=== PATIENT | male | born 1925 | race Caucasian/White ===

== ENCOUNTER → 2016-09-01 | Outpatient (CLI) | payer BC, OTHER ==
[~2016-09-01] MED LIST: AMLO2.5T PO; ASCO1CAP3 PO; ASCO500T16 PO; ASPI81TA28 PO; CALC-20 PO; CRD200 PO; ELQ25 PO; METO25TA3 PO; TPRSR25 PO
== END | disposition home or self-care (01) ==
LOC: C.RDSM 09:45
PROVIDERS: ATTEND Physical Medicine & Rehabilitation Sports Medicine
DX: Z96.653 Presence of artificial knee joint, bilateral (principal)

== ENCOUNTER 2017-03-28 21:56 | Observation (INO) | payer BC, OTHER ==
[~2017-03-28] VITALS: Ht 177.8 cm; Wt 88.9 kg
[~2017-03-28 21:56] MED LIST changes: -AMLO2.5T PO; -ASCO1CAP3 PO; -CRD200 PO; -ELQ25 PO; -TPRSR25 PO
[2017-03-28] MEDS ORDERED: DILTIAZEM BOLUS / DRIP IV STA (22:08)
[2017-03-28] MEDS ORDERED: SODIUM CHLORIDE 0.9% 1000ML 500 ML IV STA (22:08)
[2017-03-28] MEDS ORDERED: DILTIAZEM HCL 5 MG/ML 5 ML VIAL ONE (22:17)
--- NOTE | 2017-03-28 22:23 | EMERGENCY ROOM VISIT NOTE ---
History Report prepared by [place]: Elpidio Crawford Under the Supervision of: Dr. Micheal Booker M.D. First contact with patient: 22:01 Chief Complaint: CARDIAC ASSESSMENT Stated Complaint: CARDIAC ASSESSMENT History of Present Illness The patient is a 89 year old male who presents to the Emergency Room by EMS with complaints of a syncopal episode occurring just prior to arrival. Per nursing staff, the patient was eating dinner at the table when he suddenly became unresponsive. They state that the patient was short of breath as he became more responsive. They note that he was hypotensive upon arrival of EMS. The patient states that he went to the [employer] game earlier today, and was feeling a little short of breath as he left, but otherwise felt normal today--no chest pain. He has a previous history of a-fib. He follows up with cardiology and is scheduled to see them in a few weeks. The patient is on aspirin, but denies taking any other blood thinning medication. He denies any recent alcohol consumption. He was seen in the ED last week for dizziness. He was just recently restarted back on his blood pressure medication. Source of History: patient Onset: Just prior to arrival Quality: other (syncope) Timing: other (episode) Associated Symptoms: + LOC, + SOB Review of Systems See HPI for pertinent positives & negatives. A total of 10 systems reviewed and were otherwise negative. Past Medical & Surgical Medical Problems: (1) A-fib (2) BPH (benign prostatic hyperplasia) (3) GERD (gastroesophageal reflux disease) (4) History of bilateral knee replacement (5) HTN (hypertension) (6) Vertigo Family History No pertinent family history stated. Social History Smoking Status: Former Smoker Drug Use: none Marital Status: Housing Status: lives with significant other Occupation Status: retired Current/Historical Medications Scheduled Amlodipine Besylate (Norvasc), 2.5 MG PO DAILY Ascorbic Acid (Ascorbic Acid), 500 MG PO DAILY Aspirin (Aspirin Ec), 81 MG PO DAILY Calcium Carbonate-Vitamin D (Calcium 600 + D), 1 TAB PO DAILY Metoprolol Succinate (Toprol Xl), 12.5 MG PO DAILY Allergies Coded Allergies: No Known Allergies (Verified , 03/28/17) Physical Exam Vital Signs Date Time Temp Pulse Resp B/P (MAP) Pulse Ox O2 Delivery O2 Flow Rate FiO2 03/28/17 23:24 134 126/68 03/28/17 22:48 128 22 94 Nasal Cannula 2.0 03/28/17 22:38 128 20 104/75 94 Nasal Cannula 2.0 03/28/17 22:15 96 Nasal Cannula 2.0 03/28/17 22:10 128 03/28/17 22:06 95 Room Air 03/28/17 21:59 36.7 133 22 112/96 95 Nasal Cannula 2.0 03/28/17 21:59 98 Room Air Physical Exam GENERAL: Patient is in no acute distress. HEENT: No acute trauma, normocephalic atraumatic, mucous membranes moist, no nasal congestion, no scleral icterus. NECK: No stridor, no adenopathy, no meningismus, trachea is midline. LUNGS: Clear to auscultation bilaterally, no wheeze, no rhonchi, breath sounds equal. HEART: Tachycardic and irregular. No murmurs. ABDOMEN: Soft, nontender, bowel sounds positive, no hernias, no peritonitis. EXTREMITIES: No cyanosis or edema, full range of motion of all the joints without pain or difficulty, no signs for acute trauma. NEUROLOGIC: Seems mildly confused at times. Moving all extremities. Awake and alert. SKIN: No rash, no jaundice, no diaphoresis. Medical Decision & Procedures ER Provider Diagnostic Interpretation: Radiology results as stated below per my review and radiologist interpretation: CHEST ONE VIEW PORTABLE FINDINGS: The heart is mildly enlarged. There is aortic tortuosity/ectasia. There is no failure. There is no focal pulmonary consolidation. There are no pleural effusions.[ Arthritic changes are present within the shoulders. IMPRESSION: Mild cardiomegaly. No acute findings. Electronically signed by: Oliver Unger M.D. 03/28/2017 10:44 PM Laboratory Results 03/28/17 22:25 03/28/17 22:25 Test 03/28/17 22:25 03/28/17 23:46 Red Blood Count 4.60 M/uL (4.7-6.1) Mean Corpuscular Volume 98.5 fL (80-100) Mean Corpuscular Hemoglobin 33.0 pg (25-34) Mean Corpuscular Hemoglobin Concent 33.6 g/dl (32-36) RDW Standard Deviation 49.7 fL (36.4-46.3) RDW Coefficient of Variation 13.8 % (11.5-14.5) Mean Platelet Volume 10.1 fL (7.4-10.4) Prothrombin Time 12.0 SECONDS (9.0-12.0) Prothromb Time International Ratio 1.1 (0.9-1.1) Activated Partial Thromboplast Time 27.1 SECONDS (21.0-31.0) Partial Thromboplastin Ratio 1.0 Anion Gap 13.0 mmol/L (3-11) Est Creatinine Clear Calc Drug Dose 42.0 ml/min Estimated GFR () 55.6 Estimated GFR (Non- 47.9 BUN/Creatinine Ratio 21.0 (10-20) Calcium Level 8.6 mg/dl (8.5-10.1) Total Bilirubin 0.5 mg/dl (0.2-1) Alanine Aminotransferase (ALT/SGPT) 34 U/L (12-78) Alkaline Phosphatase 50 U/L (45-117) Troponin I 0.037 ng/ml (0-0.045) Total Protein 7.5 gm/dl (6.4-8.2) Albumin 3.6 gm/dl (3.4-5.0) Globulin 3.9 gm/dl (2.5-4.0) Albumin/Globulin Ratio 0.9 (0.9-2) Thyroid Stimulating Hormone (TSH) 9.650 uIu/ml (0.300-4.500) Laboratory results reviewed by me. Medications Administered Medications (Trade) Dose Ordered Sig/Lillie Route Start Time Stop Time Status Last Admin Dose Admin Sodium Chloride 500 ml @ 999 mls/hr Q31M STAT IV 03/28/17 22:08 03/28/17 22:38 DC 03/28/17 22:26 999 MLS/HR Diltiazem HCl 125 mg/Dextrose 125 ml @ 0 mls/hr Q0M PRN IV 03/28/17 22:30 03/29/17 04:00 03/28/17 22:29 5 MLS/HR Diltiazem HCl (Cardizem Inj) 25 mg STK-MED ONCE .ROUTE 03/28/17 22:17 03/28/17 22:18 DC 03/28/17 22:28 10 MG Sodium Chloride 500 ml @ 999 mls/hr Q31M STAT IV 03/28/17 23:16 11/18/17 23:46 DC 03/28/17 23:16 999 MLS/HR Metoprolol Tartrate (Lopressor Iv) 2.5 mg NOW STAT IV 03/28/17 23:16 03/28/17 23:17 DC 03/28/17 23:24 2.5 MG ECG Indication: syncope Rate (beats per minute): 136 Rhythm: atrial fibrillation Findings: RBBB, other (Diffuse non-specific ST changes. ) Comparison ECG Date: March 12, 2017 Change: Rate has increased. ED Course 2201: The patient was evaluated in room A10. A complete history and physical exam was performed. 2207: Ordered Cardizem Bolus/Drip IV, Sodium Chloride 500 ml @ 999 mls/hr IV. 2315: Ordered Lopressor 2.5 mg IV, 500 cc of saline as an IV bolus. 5: Spoke with Dr. Galaviz of [facility], he has agreed to see the patient for hospitalization. Medical Decision The patient is a 89 year old male who presents to the ED with complaints of a syncopal episode. Differential diagnoses considered include A-fib, A-flutter, DE, dysrhythmia, infection, anemia, electrolyte imbalance and heart failure. There is no leukocytosis or concerning anemia. No coagulopathy. No significant electrolyte abnormality, kidney failure or hepatitis. His TSH is mildly elevated, the T4 level is pending. Initial EKG showed a rapid A. fib with a right bundle branch block. No acute ischemic change. Cardiac enzyme testing times one is not consistent with acute cardiac injury. Chest film did not show pneumonia, mediastinal widening or pneumothorax. The patient received IV saline, he was given 2/500 mL boluses. He received a bolus of IV diltiazem and then was placed on a diltiazem drip. The drip was titrated to decrease the heart rate. He was given 2.5 mg of IV Lopressor. With the above treatment, the patient's heart rate is improving, he feels well, he is awake and alert. Heart rate is currently about 108. The patient requires a hospital stay. He had a syncopal event at home and is in a rapid A. fib. He is on a diltiazem drip to control his heart rate. I spoke to case management and the on-call hospitalist. The patient is aware of all his findings. Medication Reconcilliation Current Medication List: was personally reviewed by me Blood Pressure Screening Patient's blood pressure: Normal blood pressure Blood pressure disposition: Did not require urgent referral Impression Primary Impression: Rapid atrial fibrillation Additional Impression: Syncope Critical Care I have personally spent greater than 30 minutes of critical care time in the direct management of this patient. This includes bedside care, interpretation of diagnostic studies and testing, discussion with consultants, the patient, and family members, and other required patient management activities. This 30 minutes is in excess of all separately billable procedures. Scribe Attestation The scribe's documentation has been prepared under my direction and personally reviewed by me in its entirety. I confirm that the note above accurately reflects all work, treatment, procedures, and medical decision making performed by me. Departure Information Dispostion Being Evaluated By Hospitalist Referrals No Doctor, Assigned (PCP) Patient Instructions My [facility] Problem Qualifiers
[2017-03-28] MEDS ORDERED: DILTIAZEM HCL INJ 125 MG in DEXTROSE 5% 100ML IV PRN (22:30)
--- NOTE | 2017-03-28 22:45 | DIAGNOSTIC IMAGING REPORT ---
CHEST ONE VIEW PORTABLE CLINICAL HISTORY: Atypical chest pain COMPARISON STUDY: March 12, 2017 FINDINGS: The heart is mildly enlarged. There is aortic tortuosity/ectasia. There is no failure. There is no focal pulmonary consolidation. There are no pleural effusions.[ Arthritic changes are present within the shoulders. IMPRESSION: Mild cardiomegaly. No acute findings. Electronically signed by: Oliver Unger M.D. 03/28/2017 10:44 PM Dictated Date/Time: 03/28/2017 10:43 PM
[2017-03-28 23:07] LABS: HEMATOCRIT 45.3 % (42-52); MEAN CELL VOLUME 98.5 fL (80-100); MEAN CORPUSCULAR HGB CONC 33.6 g/dl (32-36); MEAN PLATELET VOLUME 10.1 fL (7.4-10.4); PLATELET COUNT 187 K/uL (130-400); WHITE BLOOD COUNT 8.27 K/uL (4.8-10.8)
[2017-03-28] MEDS ORDERED: SODIUM CHLORIDE 0.9% 500ML 500 ML IV STA (23:16)
[2017-03-28] MEDS ORDERED: METOPROLOL TARTRATE 1 MG/ML VIAL IV STA (23:16)
[2017-03-28 23:17] LABS: INR 1.1 (0.9-1.1)
[2017-03-28] MEDS ORDERED: AMLO2.5T PO (23:28)
[2017-03-28 23:44] LABS: ALB/GLOB RATIO 0.9 (0.9-2); CALCIUM 8.6 mg/dl (8.5-10.1); CREATININE 1.31 mg/dl (0.60-1.40); THYROID STIMULATING HORMONE 9.65 uIu/ml (0.300-4.500)
[2017-03-28 23:48] LABS: POTASSIUM 3.9 mmol/L (3.5-5.1)
[2017-03-29] MEDS ORDERED: OPTIRAY 320 IV PRN (00:15)
[2017-03-29] MEDS ORDERED: POTASSIUM CHLORIDE 10 MEQ TABCR PO STA (01:37)
[2017-03-29] MEDS ORDERED: NITROGLYCERIN 0.4 MG SL PER TAB CHARGE SL PRN (01:45)
[2017-03-29] MEDS ORDERED: TRAMADOL HCL 50 MG TAB PO PRN (01:45)
[2017-03-29] MEDS ORDERED: PROCHLORPERAZINE INJ 5 MG in SYRINGE 4 ML IV PRN (01:45)
[2017-03-29] MEDS ORDERED: ACETAMINOPHEN 325 MG TAB PO PRN (01:45)
[2017-03-29] MEDS ORDERED: METOPROLOL SUCC 50MG EXT REL TAB PO STA (01:47)
[2017-03-29] MEDS ORDERED: POTASSIUM CHLORIDE 10 MEQ TABCR ONE (01:48)
[2017-03-29] MEDS ORDERED: LACTATED RINGER'S 1000ML 1,000 ML IV ONE (02:30)
[2017-03-29] MEDS ORDERED: IV FLUIDS COMPLETED PRN (02:30)
[2017-03-29 03:00] VITALS: BP_SYST 113; BP_SYST 133; BP_SYST 138; BP_DIAS 63; BP_DIAS 77; BP_DIAS 87; PULSE 74; PULSE 76; PULSE 78; TEMP 36.5; O2SAT 96; Ht 177.8 cm; Wt 88.9 kg
[2017-03-29 03:38] LABS: BASO % 0.3 %; BASO ABS # 0.02 K/uL (0-0.2); COMPLETE YES; EOS % 0.9 %; HEMATOCRIT 42.7 % (42-52); IG% 0.1 %; LYMPH % 28.2 %; LYMPH ABS # 2.15 K/uL (1.2-3.4); MEAN CELL VOLUME 98.4 fL (80-100); MEAN CORPUSCULAR HGB CONC 32.6 g/dl (32-36); MEAN PLATELET VOLUME 9.9 fL (7.4-10.4); MONO % 7.7 %; NEUT % 62.8 %; PLATELET COUNT 179 K/uL (130-400); RED BLOOD COUNT 4.34 M/uL (4.7-6.1); WHITE BLOOD COUNT 7.63 K/uL (4.8-10.8)
[2017-03-29 03:48] LABS: PARTIAL THROMBOPLASTIN RATIO 1.1
[2017-03-29 04:08] VITALS: BP 122/73; PULSE 63; TEMP 36.7; O2SAT 96
[2017-03-29 04:25] LABS: BUN/CREATININE RATIO 21.5 (10-20); CALCIUM 8.3 mg/dl (8.5-10.1); CREATININE 1.15 mg/dl (0.60-1.40); POTASSIUM 4.6 mmol/L (3.5-5.1)
[2017-03-29] MEDS ORDERED: SODIUM CHLORIDE 0.45% 1000ML 1,000 ML IV ONE (04:45)
[2017-03-29 05:31] LABS: URINE APPEARANCE CLEAR (CLEAR); URINE BILIRUBIN NEG (NEG); URINE COLOR YELLOW; URINE NITRITE NEG (NEG); URINE PH 5.5 (4.5-7.5); URINE SPECIFIC GRAVITY 1.012 (1.000-1.030); UROBILINOGEN NEG (NEG); ZZUR CULT IF INDIC CLEAN CATCH NO
[2017-03-29 05:39] LABS: MANUAL MICROSCOPIC REQUIRED? NO; REVIEW REQ? NO
--- NOTE | 2017-03-29 06:17 | DIAGNOSTIC IMAGING REPORT ---
CT HEAD WITHOUT CONTRAST (CT) CLINICAL HISTORY: Left-sided headache COMPARISON STUDY: 03-27 TECHNIQUE: Axial CT of the brain is performed from the vertex to the skull base. IV contrast was not administered for this examination. A dose lowering technique was utilized adhering to the principles of ALARA. CT DOSE: FINDINGS: No intra or extra-axial mass lesions are visualized. There is no CT evidence of acute cortical infarction. There is no evidence of midline shift. There is no acute hemorrhage. No calvarial fractures are visualized. There are patchy white matter hypodensities likely on a small vessel basis. There is a cavum septa pellucida and cavum vergae. There is mild ventricular prominence, which is felt to be secondary to volume loss There is no evidence of acute sinusitis IMPRESSION: No acute intracranial findings Electronically signed by: Oliver Unger M.D. 03/29/2017 6:16 AM Dictated Date/Time: 03/29/2017 6:15 AM
--- NOTE | 2017-03-29 06:21 | DIAGNOSTIC IMAGING REPORT ---
CT ANGIOGRAM OF THE CHEST CLINICAL HISTORY: Atypical chest pain and shortness of breath COMPARISON STUDY: Chest x-ray dated 03/28/2017 TECHNIQUE: Following the IV administration of 120 mL of Optiray-320, CT angiogram of the thorax was performed from the thoracic inlet to the lung bases utilizing the pulmonary embolus protocol. Images are reviewed in the axial, sagittal, and coronal planes. IV contrast was administered without complication. MIP imaging was performed. A dose lowering technique was utilized adhering to the principles of ALARA. CT DOSE: 1333.64 mGy.cm FINDINGS: No pathologically enlarged axillary mediastinal or hilar lymph nodes were visualized. The ascending thoracic aorta measures 39 mm. There were no pulmonary artery filling defects to indicate acute pulmonary embolism. No pleural effusions are visualized. There are mild dependent atelectatic changes. The heart is enlarged. There are coronary artery calcifications. There are moderate arthritic changes within the shoulders. IMPRESSION: 1. No evidence of acute pulmonary embolism 2. No evidence of focal pulmonary consolidation Electronically signed by: Oliver Unger M.D. 03/29/2017 6:19 AM Dictated Date/Time: 03/29/2017 6:16 AM
--- NOTE | 2017-03-29 06:33 | HISTORY & PHYSICAL EXAMINATION ---
DATE OF ADMISSION: 03/29/2017 PRIMARY CARE DOCTOR: Dr. Echevarria CHIEF COMPLAINT: Syncope. HISTORY OF PRESENT ILLNESS: History was obtained from patient and records. Medical history is significant for hypertension, paroxysmal A-Fib (related to a bout of pneumonia), BPH, arthritis, past tobacco abuse, skin cancer status post surgery and PVD as per records. Recent confinement was in July 2014 for gastroenteritis. Patient saw his [facility] auto battery builder last September 2016. Patient complaining of some slowing, change in exercise capacity tolerance. Atenolol was switched to Topral XL to reduce beta tessa effect as per note. Patient had a stress test in last November 2016 which showed no inducible ischemia. EF of 60-64%, LVH, mild aortic root enlargement. About 2 weeks ago, the patient noted dizziness, lightheadedness, being off balance and w some dyspnea on exertion. Patient was seen at the PCP's office and subsequently directed to the ER. CTA of the neck showed complex plaque, identified distal left common carotid artery greater than 75% stenosis seen just below the bifurcation. CT angio of the brain; senescent changes. Outpatient vascular surgery was contemplated. Patient was seen by [facility] auto battery builder for followup a few days ago. Amlodipine was added to regimen for her labile blood pressure control. Outpatient carotid Dopplers ordered. In the last week, the patient had persistent exertional shortness of breath. Yesterday, the patient was at the ball game. At home last night, he had his usual 2 drinks of scotch. Subsequently sat down at the dinner table and subsequently passed out- unwitnessed. As per patient, he was found by his unresponsive in a chair. EMS was called. Patient woke up with EMS around him. Patient denies chest pain or unusual shortness of breath. He is complaining of left-sided headache, achy. No incontinence. No tongue biting. No previous syncopal events to patient's memory. At the Emergency Room the patient was noted to be in rapid A-Fib. He received IV Cardizem bolus/drip and normal saline at the ER. Patient converted to normal sinus rhythm. Patient is currently comfortable. MEDICAL HISTORY: As above. SURGERIES: Knee surgery, skin cancer surgery and shoulder surgery. HOME MEDICATIONS: Norvasc, ascorbic acid, aspirin, and Toprol XL. ALLERGIES: No known drug allergies. FAMILY HISTORY: Lymph node problems. PERSONAL AND SOCIAL HISTORY: Past tobacco use. two drinks of scotch at night. He is a retired high school football coach and coach. REVIEW OF SYSTEMS: As per HPI. All 10 systems were reviewed. All other ROS negative. PHYSICAL EXAMINATION: VITAL SIGNS: Blood pressure was noted to be 104/71, pulse rate 130 later 80, RR 20, temperature 36.7 and sats 95 on room air GENERAL: comfortable, in no respiratory distress. Looks younger for stated age. SKIN: Normal color. Warm. HEENT: [place] palpebral conjuctivae. No ptosis. Dry buccal mucosa. NECK: No JVD. Supple. No tenderness. CHEST: Clear to auscultation. HEART: RRR. No murmur. CHEST: Clear to auscultation. No tenderness. ABDOMEN: Soft and nontender. EXTREMITIES: No edema. No tenderness. No gross deformities on exam. NEUROLOGIC: Coherent. No gross focality. LABORATORIES: Hemoglobin was noted to be 15.2, hematocrit 45, white cell count 8.27 platelets of 187. Sodium noted to 140 potassium 3.9, chloride 107, CO2 23, BUN 27, creatinine 1.31 and glucose 95. CTA initial read; no PE. CT head initial read : no acute pathology. EKG as per my interpretation; A-Fib, RBBB, T-wave inversion in the inferior leads. ASSESSMENT AND PLAN: 1. Recurrent atrial fibrillation Uncontrolled heart rate upon arrival at the emergency room. Patient currently normal sinus rhythm after initial ER intervention. possible precipitants : mild hypovolemia (increase in baseline serum creatinine) ? orthostasis (Norvasc recently added to BP regimen) 2. Syncope secondary to above 3. history of peripheral vascular disease 4. past tobacco abuse 5. skin cancer sp surgery. Observation PCU increase home beta tessa maintenance dose Stop Cardizem drip initiated at the ER. Hold Norvasc for now until patient seen by Cardiology. Check orthostatic vitals. IVF 2D echo RE recurrent A. fib, syncope. Cardio consult RE recurrent AF. (Patient known to Dr. Polo.) Continue home aspirin for thromboprophylaxis for now. Will consider starting low dose IV heparin for prophylaxis if A. fib recurs during confinement. DVT prophylaxis, Lovenox subQ. Full code. MTDD
[2017-03-29] MEDS: ASPIRIN 81 MG ECTAB PO SCH (07:48)
[2017-03-29 08:17] VITALS: BP 158/90; PULSE 62; TEMP 36.6; O2SAT 97
[2017-03-29] MEDS ORDERED: ENOXAPARIN 40 MG/0.4 ML SYR SC SCH (09:00)
[2017-03-29] MEDS ORDERED: AMLODIPINE BESYLATE 5 MG TAB PO SCH (09:00)
[2017-03-29] MEDS ORDERED: HEPARIN 25,000 UNIT/500ML D5W 500 ML IV PRN (11:15)
[2017-03-29] MEDS: AMIODARONE 200 MG TAB PO SCH ×2 (11:28→17:05)
[2017-03-29 11:34] VITALS: BP 139/79; PULSE 65; TEMP 36.7; O2SAT 96
[2017-03-29 11:40] LABS: INR 1.1 (0.9-1.1); PROTHROMBIN TIME (PATIENT) 12.2 SECONDS (9.0-12.0)
[2017-03-29 12:00] LABS: THYROID STIMULATING HORMONE 2.55 uIu/ml (0.300-4.500)
--- NOTE | 2017-03-29 12:19 | CARDIOLOGY CONSULTATION ---
DATE OF CONSULTATION: 03/29/2017 CONSULTATION FOR: Amanda montelongo. REASON FOR CONSULTATION: Syncope. HISTORY OF PRESENT ILLNESS: This is an 89-year-old male patient who is very active and goes to the gym several times per week. In October 2013, he returned from a cruise and was flying home when he became very ill. The way the patient describes it is that there was a physician on the airplane who started an IV fluid and he ended up in a [facility]. While there, he developed atrial fibrillation due to his illness. He converted to normal rhythm before he left the hospital. He has been followed by Dr. Polo as an outpatient. He has been quite healthy for his age. He does have a right bundle branch block on his EKG and has been treated for labile hypertension and an essential tremor. He has no history of diabetes, strokes or kidney disease. Earlier this month he was experiencing some lightheadedness and dizziness. He was referred to the Emergency Department where he had a CTA of the neck and found to have a complex lesion of his left carotid artery. He states that after that event, he returned home and has been feeling well without any dizziness, lightheadedness, paralysis or paresthesias. He was scheduled to see a vascular surgeon as an outpatient later this month. The patient was feeling well enough that he went to the football game yesterday. He states he did not drink anything all day and they left about the third quarter of the game. He returned home and had a couple scotches and sat down for dinner. He then had a syncopal event and was brought to the hospital. Upon arrival here, he was noted to be in atrial fibrillation with RVR. He was given a bolus of intravenous Cardizem and he converted to normal sinus rhythm. CT of the brain showed no acute changes. His EKG reverted back to normal sinus with a right bundle branch block. Cardiac markers are borderline elevated. He has had no chest pain or shortness of breath. He has had no paralysis or paresthesias. No visual changes or aphasia. In general, he feels well today. ALLERGIES: No known medical allergies. PAST MEDICAL HISTORY: As per the history of chief complaint. The patient has had a history of paroxysmal atrial arrhythmias. No prior history of coronary artery disease. Mild essential hypertension. No prior history of thyroid disease. No history of diabetes, strokes or kidney disease. SOCIAL HISTORY: He lives with his . He is a nonsmoker. FAMILY MEDICAL HISTORY: Noncontributory. REVIEW OF SYSTEMS: A 10-point review of systems is negative except for the history of chief complaint. PHYSICAL EXAMINATION: GENERAL: He is alert and oriented, in no acute distress. VITAL SIGNS: Blood pressure is 130/80, pulse is regular at 60 beats per minute. He is afebrile. He had a sinus mechanism on telemetry. HEENT: Normocephalic. Pupils are equal and reactive to light. Extraocular muscles are intact bilaterally. NECK: The neck veins are flat. Carotids have good upstrokes bilaterally without bruits. Thyroid is nonpalpable. RESPIRATORY: Breath sounds equal bilaterally and clear to auscultation. CARDIOVASCULAR: Heart has a regular rhythm. There is a normal S1, S2. No S3, S4. No cardiac rubs or murmurs. GASTROINTESTINAL: Abdomen is soft, nontender without organomegaly. EXTREMITIES: Free of edema, digital clubbing, or cyanosis. NEUROLOGIC: Grossly intact. SKIN: Warm to touch. LYMPH NODES: Negative to palpation. LABORATORY DATA: Per the history of chief complaint. IMPRESSION: 1. Syncope. 2. Atrial fibrillation with rapid ventricular response. 3. Right bundle branch block. 4. Complex left carotid stenosis. 5. Hypertension. RECOMMENDATIONS: The patient's TSH level was elevated in the ER, which could reflect his alcohol consumption last night. I will be starting this patient on amiodarone and I think that repeating a TSH is important for treatment options. I will repeat the TSH as well as a T3 and T4. The patient will be started on amiodarone to control his atrial arrhythmias. I think he is at risk for additional paroxysmal atrial fibrillation with RVR. The atrial fibrillation could have resulted in his syncope. I am also concerned regarding the left carotid lesion and the possibility of it resulting in his recent syncope. I will ask neurology to see him and give us an evaluation should he proceed to surgery sooner or can we wait and have him evaluated as an outpatient. He will be started on intravenous heparin. Full anticoagulation as an outpatient will be determined later. I think an echocardiogram is also warranted.
--- NOTE | 2017-03-29 14:45 | ECHOCARDIOGRAM REPORT ---
*NOTICE TO RECEIVING CONSTITUTION PARTY AGENCY This information is strictly Confidential and protected under [place] law. [place] law prohibits you from making any further disclosure of this information unless further disclosure is expressly permitted by the written consent of the person to whom it pertains or is authorized by law. A general authorization for the release of medical or other information is not sufficient for this purpose. Hospital accepts no responsibility if the information is made available to any other person, INCLUDING THE PATIENT. Interpretation Summary * Name: AUGUST CRAWFORD Study Date: 03/29/2017 08:29 AM BP: 122/73 mmHg * Patient Location: C.2T\S\S244\S\1 HR: 71 * : 1925 (M/d/yyyy) Gender: Male Height: 72 in * Age: 89 yrs Ethnicity: CA Weight: 199 lb * Ordering Physician: Boston Alvarez * Referring Physician: Self, Referred * Performed By: Boston Keller RDCS * * Reason For Study: Syncope * BSA: 2.1 m2 * -- Conclusions -- * The left ventricle is normal in size. * There is moderate concentric left ventricular hypertrophy. * Ejection Fraction = 50-55%. * The right ventricular systolic function is normal. * The left atrium is moderately dilated. * The right atrium is mildly dilated. * There is mild mitral regurgitation. * There is mild to moderate tricuspid regurgitation. Procedure Details * A complete two-dimensional transthoracic echocardiogram was performed (2D, M-mode, Doppler and color flow Doppler). * The study was technically adequate. Left Ventricle * The left ventricle is normal in size. * There is moderate concentric left ventricular hypertrophy. * Ejection Fraction = 50-55%. * The left ventricular wall motion is normal at rest. Right Ventricle * The right ventricle is normal size. * The right ventricular systolic function is normal. Atria * The left atrium is moderately dilated. * The right atrium is mildly dilated. * There is no evidence of atrial septal defect, but resolution does not allow assessment for a patent foramen ovale. Mitral Valve * The mitral valve anatomy is normal. * There is mild mitral regurgitation. Tricuspid Valve * The tricuspid valve anatomy is normal. * There is mild to moderate tricuspid regurgitation. Aortic Valve * The aortic valve is trileaflet. * No hemodynamically significant valvular aortic stenosis. * There is no significant aortic regurgitation. Pulmonic Valve * The pulmonic valve is not well visualized. Great Vessels * The aortic root and proximal ascending aorta are normal sized. Pericardium/Pleural * There is no pericardial effusion. MMode 2D Measurements and Calculations IVSd 1.2 cm IVSs 1.7 cm LVIDd 4.1 cm LVIDs 3.2 cm LVPWd 1.2 cm LVPWs 1.6 cm IVS/LVPW 10 FS 21.1 % EDV(Teich) 73.1 ml ESV(Teich) 41.4 ml EF(Teich) 43.4 % EDV(cubed) 67.6 ml ESV(cubed) 33.2 ml EF(cubed) 50.9 % % IVS thick 34.7 % % LVPW thick 28.6 % LV mass(C)d 178.2 grams LV mass(C)dI 83.8 grams/m\S\2 LV mass(C)s 198.7 grams LV mass(C)sI 93.5 grams/m\S\2 SV(Teich) 31.7 ml SI(Teich) 14.9 ml/m\S\2 SV(cubed) 34.4 ml SI(cubed) 16.2 ml/m\S\2 Ao root diam 4.3 cm Ao root area 14.6 cm\S\2 ACS 1.9 cm LA dimension 4.1 cm asc Aorta Diam 4.0 cm LA/Ao 0.96 LVOT diam 2.2 cm LVOT area 3.7 cm\S\2 LVAd ap4 29.2 cm\S\2 LVLd ap4 7.9 cm EDV(MOD-sp4) 88.5 ml EDV(sp4-el) 92.1 ml LVAs ap4 18.6 cm\S\2 LVLs ap4 6.9 cm ESV(MOD-sp4) 42.0 ml ESV(sp4-el) 42.4 ml EF(MOD-sp4) 52.6 % EF(sp4-el) 54.0 % LVAd ap2 25.4 cm\S\2 LVLd ap2 7.7 cm EDV(MOD-sp2) 70.4 ml EDV(sp2-el) 70.8 ml LVAs ap2 16.5 cm\S\2 LVLs ap2 7.0 cm ESV(MOD-sp2) 33.8 ml ESV(sp2-el) 32.9 ml EF(MOD-sp2) 52.0 % EF(sp2-el) 53.5 % LVLd %diff -1.67 % EDV(MOD-bp) 79.2 ml LVLs %diff 1.3 % ESV(MOD-bp) 37.0 ml EF(MOD-bp) 53.3 % SV(MOD-sp4) 46.6 ml SI(MOD-sp4) 21.9 ml/m\S\2 SV(MOD-sp2) 36.6 ml SI(MOD-sp2) 17.2 ml/m\S\2 SV(MOD-bp) 42.2 ml SI(MOD-bp) 19.9 ml/m\S\2 SV(sp4-el) 49.7 ml SI(sp4-el) 23.4 ml/m\S\2 SV(sp2-el) 37.9 ml SI(sp2-el) 17.8 ml/m\S\2 Doppler Measurements and Calculations MV E max mike 69.7 cm/sec MV A max mike 65.9 cm/sec MV E/A 1.1 MV dec time 0.19 sec Ao V2 max 108.8 cm/sec Ao max PG 4.7 mmHg Ao max PG (full) 0.73 mmHg MALKA(V,A) 3.4 cm\S\2 MALKA(V,D) 3.4 cm\S\2 LV V1 max PG 4.0 mmHg LV V1 max 100.0 cm/sec
[2017-03-29 15:39] VITALS: BP 144/90; PULSE 64; TEMP 36.9; O2SAT 96
[2017-03-29 17:56] LABS: PARTIAL THROMBOPLASTIN RATIO 2.3
--- NOTE | 2017-03-29 19:10 | Progress Note ---
Medicine Progress Note Date & Time of Visit: Mar 29, 2017 at 18:56. Subjective seen resting in bed, family at the bedside states he feels fine overall denies chest pain, dyspnea, dizziness, palpitations, nausea/vomiting denies other symptoms eager for discharge Objective Last 8 Hrs Date Time Temp Pulse Resp B/P (MAP) Pulse Ox O2 Delivery O2 Flow Rate FiO2 03/29/17 16:00 Room Air 03/29/17 15:39 36.9 64 20 144/90 (108) 96 Room Air 03/29/17 12:00 Room Air 03/29/17 11:34 36.7 65 18 139/79 (99) 96 Room Air Physical Exam: General- oriented x 3, not in distress, speaks in sentences with no effort Head- atraumatic Eyes- PERRL, EOMI, anicteric ENT- oropharynx clear Neck- supple, no JVD, no adenopathy, no thyromegaly Lungs- clear breath sounds bilaterally, no rales/wheezes Heart- regular rhythm; no murmur, normal rate Abdomen- normal bowel sounds, soft, nontender Extremities- no pretibial edema, no calf tenderness; peripheral pulses intact Neuro- alert, oriented x 3; PERRL, EOMI; no facial palsy; no dysarthria; motor 5 /5 bilaterally; sensation intact no gross focal deficits Skin- warm & dry Laboratory Results: Last 24 Hours Test 03/28/17 22:25 03/28/17 23:58 03/29/17 03:25 03/29/17 07:18 White Blood Count 8.27 K/uL 7.63 K/uL Red Blood Count 4.60 M/uL 4.34 M/uL Hemoglobin 15.2 g/dL 13.9 g/dL Hematocrit 45.3 % 42.7 % Mean Corpuscular Volume 98.5 fL 98.4 fL Mean Corpuscular Hemoglobin 33.0 pg 32.0 pg Mean Corpuscular Hemoglobin Concent 33.6 g/dl 32.6 g/dl RDW Standard Deviation 49.7 fL 49.9 fL RDW Coefficient of Variation 13.8 % 13.8 % Platelet Count 187 K/uL 179 K/uL Mean Platelet Volume 10.1 fL 9.9 fL Prothrombin Time 12.0 SECONDS Prothromb Time International Ratio 1.1 Activated Partial Thromboplast Time 27.1 SECONDS 27.9 SECONDS Partial Thromboplastin Ratio 1.0 1.1 Sodium Level 143 mmol/L 143 mmol/L Potassium Level 3.9 mmol/L 4.6 mmol/L Chloride Level 107 mmol/L 108 mmol/L Carbon Dioxide Level 23 mmol/L 29 mmol/L Anion Gap 13.0 mmol/L 6.0 mmol/L Blood Urea Nitrogen 27 mg/dl 25 mg/dl Creatinine 1.31 mg/dl 1.15 mg/dl Est Creatinine Clear Calc Drug Dose 42.0 ml/min 49.0 ml/min Estimated GFR () 55.6 65.0 Estimated GFR (Non- 47.9 56.1 BUN/Creatinine Ratio 21.0 21.5 Random Glucose 95 mg/dl 113 mg/dl Calcium Level 8.6 mg/dl 8.3 mg/dl Magnesium Level 2.0 mg/dl Total Bilirubin 0.5 mg/dl Aspartate Amino Transf (AST/SGOT) 31 U/L Alanine Aminotransferase (ALT/SGPT) 34 U/L Alkaline Phosphatase 50 U/L Troponin I 0.037 ng/ml 0.049 ng/ml 0.068 ng/ml Total Protein 7.5 gm/dl Albumin 3.6 gm/dl Globulin 3.9 gm/dl Albumin/Globulin Ratio 0.9 Thyroid Stimulating Hormone (TSH) 9.650 uIu/ml Free Thyroxine 1.00 ng/dl Urine Color YELLOW Urine Appearance CLEAR Urine pH 5.5 Urine Specific Constantine 1.012 Urine Protein NEG Urine Glucose (UA) NEG Urine Ketones NEG Urine Occult Blood NEG Urine Nitrite NEG Urine Bilirubin NEG Urine Urobilinogen NEG Urine Leukocyte Esterase NEG Neutrophils (%) (Auto) 62.8 % Lymphocytes (%) (Auto) 28.2 % Monocytes (%) (Auto) 7.7 % Eosinophils (%) (Auto) 0.9 % Basophils (%) (Auto) 0.3 % Neutrophils # (Auto) 4.79 K/uL Lymphocytes # (Auto) 2.15 K/uL Monocytes # (Auto) 0.59 K/uL Eosinophils # (Auto) 0.07 K/uL Basophils # (Auto) 0.02 K/uL Immature Granulocyte % (Auto) 0.1 % Immature Granulocyte # (Auto) 0.01 K/uL Total Triiodothyronine 1.01 ng/ml Test 03/29/17 11:00 03/29/17 17:29 Prothrombin Time 12.2 SECONDS Prothromb Time International Ratio 1.1 Thyroid Stimulating Hormone (TSH) 2.550 uIu/ml Free Thyroxine 1.00 ng/dl Free Triiodothyronine 3.03 pg/ml Activated Partial Thromboplast Time 58.7 SECONDS Partial Thromboplastin Ratio 2.3 Assessment & Plan Recurrent atrial fibrillation -- echo noted -- Metoprolol increased Amlodipine held -- evaluated by Dr. Pearson Amiodarone, Heparin started -- now in sinus rhythm Syncope -- from A fib -- also has L carotid artery stenosis 75% will order repeat Carotid US -- Neurology consulted history of peripheral vascular disease past tobacco abuse skin cancer sp surgery. DVT proph Heparin drip Full Code Disposition anticipate d/c home when medically stable Current Inpatient Medications: Current Inpatient Medications Medications (Trade) Dose Ordered Sig/Lillie Route Start Time Stop Time Status Last Admin Dose Admin Ioversol (Optiray 320) 125 ml UD PRN IV 03/29/17 00:15 04/02/17 00:14 Acetaminophen (Tylenol Tab) 650 mg Q4H PRN PO 03/29/17 01:45 04/28/17 01:44 Nitroglycerin (Nitrostat Tab) 0.4 mg UD PRN SL 03/29/17 01:45 04/28/17 01:44 Aspirin (Ecotrin Tab) 81 mg DAILY PO 03/29/17 09:00 04/28/17 08:59 03/29/17 07:48 81 MG Metoprolol Succinate (Toprol Xl Tab) 25 mg DAILY PO 03/30/17 09:00 04/29/17 08:59 Prochlorperazine Edisylate 5 mg/ Syringe 5 ml @ 5 mls/min Q6H PRN IV 03/29/17 01:45 04/28/17 01:44 Tramadol HCl (Ultram Tab) 25 mg Q6H PRN PO 03/29/17 01:45 04/28/17 01:44 Miscellaneous (Iv Fluids Completed) 1 ea PRN PRN N/A 03/29/17 02:30 03/29/18 02:29 Amiodarone HCl (Cordarone Tab) 400 mg TIDM PO 03/29/17 11:30 04/28/17 11:29 03/29/17 17:05 400 MG Heparin Sodium/ Dextrose 500 ml @ 29 mls/hr [id number] PRN IV 03/29/17 11:15 04/28/17 11:14 03/29/17 11:32 29 MLS/HR
[2017-03-29 19:35] VITALS: BP 143/86; PULSE 68; TEMP 36.7; O2SAT 96
[2017-03-30 00:30] VITALS: BP 153/87; PULSE 69; TEMP 36.5; O2SAT 93
[2017-03-30 03:12] VITALS: BP 144/85; PULSE 66; TEMP 36.7; O2SAT 96
[2017-03-30] MEDS: ASPIRIN 81 MG ECTAB PO SCH (07:34)
[2017-03-30] MEDS: AMIODARONE 200 MG TAB PO SCH ×2 (07:34→12:31)
[2017-03-30 07:49] LABS: PARTIAL THROMBOPLASTIN RATIO 3.9
[2017-03-30 08:13] VITALS: BP 164/94; PULSE 68; TEMP 36.8; O2SAT 96
[2017-03-30] MEDS ORDERED: METOPROLOL SUCC 25MG EXT REL TAB PO SCH (09:00)
--- NOTE | 2017-03-30 11:24 | Progress Note ---
Medicine Progress Note Date & Time of Visit: Mar 30, 2017 at 11:22. Subjective no acute events overnight remains in sinus rhythm alert, not in distress states he feels well overall denies chest pain, dizziness, palpitations, dyspnea, nausea no bleeding ambulating with no problems eager for discharge Objective Last 8 Hrs Date Time Temp Pulse Resp B/P (MAP) Pulse Ox O2 Delivery O2 Flow Rate FiO2 03/30/17 08:13 36.8 68 18 164/94 (117) 96 Room Air 03/30/17 08:00 Room Air 03/30/17 04:28 Room Air Physical Exam: General- oriented x 3, not in distress, speaks in sentences with no effort Head- atraumatic Eyes- EOMI, anicteric ENT- oropharynx clear Neck- supple, no JVD Lungs- clear breath sounds bilaterally, no rales/wheezes Heart- regular rhythm; no murmur, normal rate Abdomen- normal bowel sounds, soft, nontender Extremities- no pretibial edema, no calf tenderness; peripheral pulses intact Neuro- alert, oriented x 3; no gross deficits Skin- warm & dry Laboratory Results: Last 24 Hours Test 03/29/17 17:29 03/30/17 07:13 Activated Partial Thromboplast Time 58.7 SECONDS 101.9 SECONDS Partial Thromboplastin Ratio 2.3 3.9 Assessment & Plan Recurrent atrial fibrillation -- echo noted -- evaluated by Dr. Pearson -- Metoprolol increased Amlodipine held Amiodarone, Heparin started -- now in sinus rhythm -- awaiting further recommendations by Cardiology Syncope -- from A fib -- also has L carotid artery stenosis 75% updated Carotid US ordered -- Neurology consulted History of peripheral vascular disease past tobacco abuse skin cancer sp surgery. DVT proph Heparin drip Full Code Disposition anticipate d/c home when medically stable Current Inpatient Medications: Current Inpatient Medications Medications (Trade) Dose Ordered Sig/Lillie Route Start Time Stop Time Status Last Admin Dose Admin Ioversol (Optiray 320) 125 ml UD PRN IV 03/29/17 00:15 04/02/17 00:14 Acetaminophen (Tylenol Tab) 650 mg Q4H PRN PO 03/29/17 01:45 04/28/17 01:44 Nitroglycerin (Nitrostat Tab) 0.4 mg UD PRN SL 03/29/17 01:45 04/28/17 01:44 Aspirin (Ecotrin Tab) 81 mg DAILY PO 03/29/17 09:00 04/28/17 08:59 03/30/17 07:34 81 MG Metoprolol Succinate (Toprol Xl Tab) 25 mg DAILY PO 03/30/17 09:00 04/29/17 08:59 03/30/17 07:34 25 MG Prochlorperazine Edisylate 5 mg/ Syringe 5 ml @ 5 mls/min Q6H PRN IV 03/29/17 01:45 04/28/17 01:44 Tramadol HCl (Ultram Tab) 25 mg Q6H PRN PO 03/29/17 01:45 04/28/17 01:44 Miscellaneous (Iv Fluids Completed) 1 ea PRN PRN N/A 03/29/17 02:30 03/29/18 02:29 Amiodarone HCl (Cordarone Tab) 400 mg TIDM PO 03/29/17 11:30 04/28/17 11:29 03/30/17 07:34 400 MG Heparin Sodium/ Dextrose 500 ml @ 26 mls/hr [id number] PRN IV 03/29/17 11:15 04/28/17 11:14 03/29/17 11:32 29 MLS/HR
[2017-03-30 11:32] LABS: BASO % 0.4 %; BASO ABS # 0.03 K/uL (0-0.2); COMPLETE YES; EOS % 2.2 %; HEMATOCRIT 41.1 % (42-52); IG% 0.2 %; LYMPH % 31.9 %; LYMPH ABS # 2.59 K/uL (1.2-3.4); MEAN CELL VOLUME 98.3 fL (80-100); MEAN CORPUSCULAR HEMOGLOBIN 32.8 pg (25-34); MEAN CORPUSCULAR HGB CONC 33.3 g/dl (32-36); MEAN PLATELET VOLUME 10.3 fL (7.4-10.4); NEUT % 58.3 %; PLATELET COUNT 164 K/uL (130-400); RED BLOOD COUNT 4.18 M/uL (4.7-6.1); WHITE BLOOD COUNT 8.12 K/uL (4.8-10.8)
[2017-03-30 11:34] LABS: CREATININE 1.06 mg/dl (0.60-1.40); MAGNESIUM 1.9 mg/dl (1.8-2.4); POTASSIUM 4.7 mmol/L (3.5-5.1)
[2017-03-30 11:51] VITALS: BP 145/77; PULSE 69; TEMP 37; O2SAT 91
--- NOTE | 2017-03-30 12:12 | DIAGNOSTIC IMAGING REPORT ---
ULTRASOUND OF THE CAROTID ARTERIES CLINICAL HISTORY: Carotid stenosis. COMPARISON STUDY: CT angiogram of the neck dated 03/12/2017. TECHNIQUE: Real-time, grayscale, and color Doppler sonography of the carotid arteries is performed. Images are reviewed in the transverse and longitudinal planes. FINDINGS: Blood pressures were not assessed. The carotid arteries are patent bilaterally and demonstrate antegrade flow. There is moderate to advanced atherosclerotic plaque seen bilaterally, left greater than right. Normal doppler arterial waveforms are seen throughout. Velocity measurements are listed below. Common carotid peak systolic velocity (cm/sec): RIGHT: 104 LEFT: 207 ICA proximal peak systolic velocity (cm/sec): RIGHT: 97 LEFT: 207 ICA mid peak systolic velocity (cm/sec): RIGHT: 70 LEFT: 68 ICA distal peak systolic velocity (cm/sec): RIGHT: 101 LEFT: 53 ICA/CC peak systolic ratio: RIGHT: 1.0 LEFT: 0.9 Antegrade flow was shown in the vertebral arteries. The external carotid arteries are patent. IMPRESSION: 1. Findings are consistent with at least 70% stenosis in the distal left common carotid/proximal left internal carotid artery by velocity criteria. This was better assessed on the recent CT angiogram of the neck. 2. There is no sonographic evidence of hemodynamically significant stenosis in the right carotid arterial system. 3. Antegrade flow is shown in the vertebral arteries. Electronically signed by: Micheal Eaton M.D. 03/30/2017 12:11 PM Dictated Date/Time: 03/30/2017 12:08 PM
--- NOTE | 2017-03-30 15:30 | Neurology Consultation ---
Neurology Consultation Date of Consultation: Mar 30, 2017. Attending Physician: Sixto Avila MD Primary Care Physician: Dylon Echevarria M.D. Reason for Consultation: syncope History of Present Illness Source: patient Sung is an 89 year old male with PMH: hypertension, paroxysmal A-Fib (related to a bout of pneumonia), BPH, arthritis, past tobacco abuse, skin cancer. he was at the game and had some SOB going back to the bus. He walks 2 miles daily but states he is having more exercise dyspnea which causes him to sit down. He went home that night and had 2 shot of scotch and had chicken noodle soup. he has an episode of syncope, EMS was called and he was brought to the ED. Currently he has no complaints and wants to leave. He states he needs to get home because his has alzheimer's and he needs to get home to take care of her. denies current SOB, CP, abdominal pain, weakness, numbness tingling, N, V. Past Medical/Surgical History Medical Problems: (1) Carotid stenosis, left Status: Acute (2) Dizziness Status: Acute (3) Rapid atrial fibrillation Status: Acute (4) Syncope Status: Acute Social History Drug Use: none Marital Status: Housing Status: lives with significant other Occupation Status: retired Allergies Coded Allergies: No Known Allergies (Verified , 03/28/17) Current Inpatient Medications Current Inpatient Medications Medications (Trade) Dose Ordered Sig/Lillie Route Start Time Stop Time Status Last Admin Dose Admin Ioversol (Optiray 320) 125 ml UD PRN IV 03/29/17 00:15 04/02/17 00:14 Acetaminophen (Tylenol Tab) 650 mg Q4H PRN PO 03/29/17 01:45 04/28/17 01:44 Nitroglycerin (Nitrostat Tab) 0.4 mg UD PRN SL 03/29/17 01:45 04/28/17 01:44 Aspirin (Ecotrin Tab) 81 mg DAILY PO 03/29/17 09:00 04/28/17 08:59 03/30/17 07:34 81 MG Metoprolol Succinate (Toprol Xl Tab) 25 mg DAILY PO 03/30/17 09:00 04/29/17 08:59 03/30/17 07:34 25 MG Prochlorperazine Edisylate 5 mg/ Syringe 5 ml @ 5 mls/min Q6H PRN IV 03/29/17 01:45 04/28/17 01:44 Tramadol HCl (Ultram Tab) 25 mg Q6H PRN PO 03/29/17 01:45 04/28/17 01:44 Miscellaneous (Iv Fluids Completed) 1 ea PRN PRN N/A 03/29/17 02:30 03/29/18 02:29 Amiodarone HCl (Cordarone Tab) 400 mg TIDM PO 03/29/17 11:30 04/28/17 11:29 03/30/17 12:31 400 MG Heparin Sodium/ Dextrose 500 ml @ 26 mls/hr [id number] PRN IV 03/29/17 11:15 04/28/17 11:14 03/29/17 11:32 29 MLS/HR Physical Exam Vital Signs (Past 24 Hrs): Date Time Temp Pulse Resp B/P (MAP) Pulse Ox O2 Delivery O2 Flow Rate FiO2 03/30/17 12:00 Room Air 03/30/17 11:51 37.0 69 18 145/77 (99) 91 Room Air 03/30/17 08:13 36.8 68 18 164/94 (117) 96 Room Air 03/30/17 08:00 Room Air 03/30/17 04:28 Room Air 03/30/17 03:12 36.7 66 16 144/85 (104) 96 Room Air 03/30/17 00:48 Room Air 03/30/17 00:30 36.5 69 17 153/87 (109) 93 Room Air 03/29/17 20:50 Room Air 03/29/17 19:35 36.7 68 22 143/86 (105) 96 Room Air 03/29/17 16:00 Room Air 03/29/17 15:39 36.9 64 20 144/90 (108) 96 Room Air Physical Exam: Constitutional: appearance nourished, healthy and normal Ears, Nose, Mouth and Throat: mucous membranes moist, no injection and skin normal, eyes normal Cardiovascular: normal S-1 and S-2 and regular rate and rhythm Respiratory: clear to auscultation (CTA) and no rales, rhonchi or wheeze Musculoskeletal: no peripheral edema and good distal pulses Skin: multiple irregular moles and papular lesions Eyes: extraocular muscles intact (EOMI) and pupils equal, round and reactive to light (PERRL) NEUROLOGIC EXAMINATION: Mental status: Alert and interactive Oriented to full date and location Oriented to person Speech fluent with no evidence of aphasia Cranial Nerves smile eye brow raise symmetric, tongue midline Reflexes: Deep tendon reflexes were symmetrical and graded 2/5 UE , decreased LE Sensory: light touch Coordination: Romberg absent Gait/Stance: Posture normal. Gait normal: with steady with steps, base, turning, tandem gait. Motor: Negative for pronator drift of out stretched arms with eyes closed. Strength: biceps triceps hand grounding engineer 5/5 bilaterally hip flex 5/5 bilaterally Laboratory Results Past 24 Hours: 03/30/17 07:13 Red Blood Count 4.18, Mean Corpuscular Volume 98.3, Mean Corpuscular Hemoglobin 32.8, Mean Corpuscular Hemoglobin Concent 33.3, Mean Platelet Volume 10.3, Neutrophils (%) (Auto) 58.3, Lymphocytes (%) (Auto) 31.9, Monocytes (%) (Auto) 7.0, Eosinophils (%) (Auto) 2.2, Basophils (%) (Auto) 0.4, Neutrophils # (Auto) 4.73, Lymphocytes # (Auto) 2.59, Monocytes # (Auto) 0.57, Eosinophils # (Auto) 0.18, Basophils # (Auto) 0.03 03/30/17 07:13 Test 03/30/17 07:13 White Blood Count 8.12 K/uL (4.8-10.8) Red Blood Count 4.18 M/uL (4.7-6.1) Hemoglobin 13.7 g/dL (14.0-18.0) Hematocrit 41.1 % (42-52) Mean Corpuscular Volume 98.3 fL (80-100) Mean Corpuscular Hemoglobin 32.8 pg (25-34) Mean Corpuscular Hemoglobin Concent 33.3 g/dl (32-36) Platelet Count 164 K/uL (130-400) Mean Platelet Volume 10.3 fL (7.4-10.4) Neutrophils (%) (Auto) 58.3 % Lymphocytes (%) (Auto) 31.9 % Monocytes (%) (Auto) 7.0 % Eosinophils (%) (Auto) 2.2 % Basophils (%) (Auto) 0.4 % Neutrophils # (Auto) 4.73 K/uL (1.4-6.5) Lymphocytes # (Auto) 2.59 K/uL (1.2-3.4) Monocytes # (Auto) 0.57 K/uL (0.11-0.59) Eosinophils # (Auto) 0.18 K/uL (0-0.5) Basophils # (Auto) 0.03 K/uL (0-0.2) RDW Standard Deviation 50.1 fL (36.4-46.3) RDW Coefficient of Variation 14.0 % (11.5-14.5) Immature Granulocyte % (Auto) 0.2 % Immature Granulocyte # (Auto) 0.02 K/uL (0.00-0.02) Activated Partial Thromboplast Time 101.9 SECONDS (21.0-31.0) Partial Thromboplastin Ratio 3.9 Anion Gap 5.0 mmol/L (3-11) Est Creatinine Clear Calc Drug Dose 53.0 ml/min Estimated GFR () 71.8 Estimated GFR (Non- 61.9 BUN/Creatinine Ratio 17.0 (10-20) Calcium Level 9.0 mg/dl (8.5-10.1) Magnesium Level 1.9 mg/dl (1.8-2.4) Imaging TTE- The left ventricle is normal in size. * There is moderate concentric left ventricular hypertrophy. * Ejection Fraction = 50-55%. * The right ventricular systolic function is normal. * The left atrium is moderately dilated. * The right atrium is mildly dilated. * There is mild mitral regurgitation. * There is mild to moderate tricuspid regurgitation. no ASD CT chest- No evidence of acute pulmonary embolism No evidence of focal pulmonary consolidation CT head - No acute intracranial findings carotid doppler- . Findings are consistent with at least 70% stenosis in the distal left common carotid/proximal left internal carotid artery by velocity criteria. This was better assessed on the recent CT angiogram of the neck. There is no sonographic evidence of hemodynamically significant stenosis in the right carotid arterial system. Antegrade flow is shown in the vertebral arteries. Impression 89 year old male s/p syncope. Plan 1. cards - possible proximal a fib 2. carotid doppler with 70 % stenosis distal L common carotid- vascular for any intervention 3. cards recommendations for medication adjustment- amiodarone and eliquis 4. PT/OT for any discharge needs 5. TTE - no ASD 6. orthostatics BP- not orthostatic with standing 7. TSH was significantly elevated at admission 8. vascular outpatient follow up for L common carotid evaluation I have seen and discussed above patient with Dr Meghan Wang, neurology Pt seen, partial exam as pt readying to be dc. I suspect the lightheadedness and SOB with exertion is cardiac. The pt sounds as if he had a syncopal event made protracted by continued upright posture. Doubt sz given no incont, injury or post-event confusion. Re L ICA bulb stenosis 70% or greater stenosis, CT head reviewed, bl chronic ischemic changes. By pt hx no hx of L hemisphere TIA and the carotid stenosis would not cause dizziness. Agree with outpt vascular surgery consultation. Pt had also complained of imbalance. An MRI of the brain could tell us if there had been a post circ stroke to cause imbalance or L hemisphere ischemia. Pt has refused MRI as outpt bc of claustrophobia. He wishes to discuss MRI with Dr Polo and let us know if he is willing. It would need to be done in an open unit. He may have a mild peripheral neuropathy, as he has poor vibration sense at the ankles, etiology unknown. Could be worked up as outpt. Pt elects to not follow-up with us at present. RAYNA Wang MD
[2017-03-30] MEDS ORDERED: APIXABAN 2.5 MG TAB PO ONE (15:35)
--- NOTE | 2017-03-30 15:50 | Cardiology Follow-Up ---
Subjective General Date of Service: Mar 30, 2017. Chief Complaint: foll Pt evaluation today including: conversation w/ patient, physical exam History of Present Illness The patient is a 89 year old male seen in follow up. Pt feeling well. Denies chest pain , shortness of breath or dizziness. Telemetry reveals stable SR. No bradycardia or tachycardia. Allergies Coded Allergies: No Known Allergies (Verified , 03/28/17) Social History Smoking Status: Former Smoker Hx Tobacco Use In Past Year?: No Hx Alcohol Use - Type And Amou: Yes (2 scotch nightly) Hx Substance Use - Type And Am: No Problem List Medical Problems: (1) Carotid stenosis, left Status: Acute (2) Dizziness Status: Acute (3) Rapid atrial fibrillation Status: Acute (4) Syncope Status: Acute Physical Exam Vital Signs Last Vital Signs Documentation Date Time Temp Pulse Resp B/P (MAP) Pulse Ox O2 Delivery O2 Flow Rate FiO2 03/30/17 12:00 Room Air 03/30/17 11:51 37.0 69 18 145/77 (99) 91 03/28/17 22:48 2.0 Physical Exam Constitutional: Level of Distress: NAD Head: normocephalic ENMT: hearing grossly normal Neck: trachea midline, pertinent finding (mild Left carotid bruit) Lungs: Auscultation: no wheezing, no rales/crackles, no rhonchi Cardiovascular: Heart Auscultation: RRR, no murmurs Abdomen: Bowel Sounds: normal Inspection & Palpation: soft, no tenderness, guarding & rebound Extremities: no edema Neurologic: Gait & Station: pertinent finding (no focal neuro deficits ) Assessment and Plan Assessment and Plan Summary of TTecho performed 03/29/17: * -- Conclusions -- * The left ventricle is normal in size. * There is moderate concentric left ventricular hypertrophy. * LV Ejection Fraction = 50-55%. * The right ventricular systolic function is normal. * The left atrium is moderately dilated. * The right atrium is mildly dilated. * There is mild mitral regurgitation. * There is mild to moderate tricuspid regurgitation. Impression: 89 year old active male 1. Admitted with transient loss of consciousness, in chair, no injury. 2. AF RVR, on presentation, reverted to SR on diltiazem gtt, and has remained in SR. -mild troponin elevation likely due to AF, RVR 3. h/o prior AF episode 3 years ago in setting of dehydration and respiratory / pneumonia illness, this is first recurrence. 4. High risk of cardioembolic stroke, CHADSVASc score of at least 3 for age > 75 and HTN 5. Chronic RBBB 6. 70-75% stenosis distal left carotid (70% by duplex, 75% on recent CTA) 7. 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 Home on: Metoprolol succinate 25 mg daily, increased from 12.5 mg daily. Amiodarone 200 mg BID until reassess by cardiology as outpt (primary salvage diver is Dr Polo). DC aspirin. Start Eliquis 5 mg by mouth Q 12 hours. Pt declines coumadin therapy, state he is not concerned about potential out of pocket cost for Eliquis. Outpatient vascular surgery consultation at [facility] or [facility]. Cancel carotid duplex planned for 04/08. Follow up with Dr Polo or PA in 1-2 weeks. Carmen Rosenberg DO Laboratory Results Last 24 Hours Test 03/29/17 17:29 03/30/17 07:13 Activated Partial Thromboplast Time 58.7 SECONDS 101.9 SECONDS Partial Thromboplastin Ratio 2.3 3.9 White Blood Count 8.12 K/uL Red Blood Count 4.18 M/uL Hemoglobin 13.7 g/dL Hematocrit 41.1 % Mean Corpuscular Volume 98.3 fL Mean Corpuscular Hemoglobin 32.8 pg Mean Corpuscular Hemoglobin Concent 33.3 g/dl Platelet Count 164 K/uL Mean Platelet Volume 10.3 fL Neutrophils (%) (Auto) 58.3 % Lymphocytes (%) (Auto) 31.9 % Monocytes (%) (Auto) 7.0 % Eosinophils (%) (Auto) 2.2 % Basophils (%) (Auto) 0.4 % Neutrophils # (Auto) 4.73 K/uL Lymphocytes # (Auto) 2.59 K/uL Monocytes # (Auto) 0.57 K/uL Eosinophils # (Auto) 0.18 K/uL Basophils # (Auto) 0.03 K/uL RDW Standard Deviation 50.1 fL RDW Coefficient of Variation 14.0 % Immature Granulocyte % (Auto) 0.2 % Immature Granulocyte # (Auto) 0.02 K/uL Sodium Level 140 mmol/L Potassium Level 4.7 mmol/L Chloride Level 105 mmol/L Carbon Dioxide Level 30 mmol/L Anion Gap 5.0 mmol/L Blood Urea Nitrogen 18 mg/dl Creatinine 1.06 mg/dl Est Creatinine Clear Calc Drug Dose 53.0 ml/min Estimated GFR () 71.8 Estimated GFR (Non- 61.9 BUN/Creatinine Ratio 17.0 Random Glucose 100 mg/dl Calcium Level 9.0 mg/dl Magnesium Level 1.9 mg/dl
[2017-03-30] MEDS ORDERED: CRD200 PO ×2 (16:15→16:25)
[2017-03-30] MEDS ORDERED: ELQ25 PO ×2 (16:15→16:25)
[2017-03-30] MEDS ORDERED: TPRSR25 PO ×2 (16:15→16:25)
--- NOTE | 2017-03-30 16:21 | Discharge Instructions ---
Discharge Instructions Date of Service Mar 30, 2017. Admission Reason for Admission: Paroxysmal A Fib W/ Rvr Discharge Discharge Diagnosis / Problem: ATRIAL FIBRILLATION Discharge Goals Goal(s): Diagnostic testing, Therapeutic intervention Activity Recommendations Activity Limitations: as noted below (INCREASE ACTIVITY GRADUALLY TOLERATED) . Instructions / Follow-Up Instructions / Follow-Up PLEASE REVIEW YOUR NEW MEDICATION LIST AND FOLLOW INSTRUCTIONS CAREFULLY. IF YOU HAVE ANY HEAD TRAUMA, GO TO THE ER IMMEDIATELY FOR EVALUATION. CALL PRIMARY CARE PHYSICIAN OR RETURN TO ER IMMEDIATELY IF WITH DIZZINESS, PALPITATIONS, CHEST PAIN, SHORTNESS OF BREATH, BLEEDING. FOLLOW UP WITH PRIMARY CARE PHYSICIAN DR. SANCHEZ ON Thursday04/03/17 AT 11: 05AM. FOLLOW UP WITH COMPLAINT EVALUATION SUPERVISOR DR. STARK IN 1-2 WEEKS. YOU WILL BE REFERRED TO A VASCULAR SURGEON ON YOUR FOLLOW UP VISIT. Current Hospital Diet Patient's current hospital diet: AHA Diet (Heart Healthy) Discharge Diet Recommended Diet: AHA Diet (Heart Healthy) Procedures Procedures Performed: CAROTID ULTRASOUND, ECHOCARDIOGRAM Pending Studies Studies pending at discharge: no Medical Emergencies . Who to Call and When: Medical Emergencies: If at any time you feel your situation is an emergency, please call 911 immediately. . Non-Emergent Contact Non-Emergency issues call your: Primary Care Provider, Diesel Instructor Call Non-Emergent contact if: you have any medication questions . . "Provider Documentation" section prepared by Sixto Avila. . VTE Core Measure Inpt VTE Proph given/why not?: Unfractionated heparin SQ
[2017-03-30 16:36] VITALS: BP 145/95; PULSE 69; TEMP 37; O2SAT 96
--- NOTE | 2017-03-30 16:36 | Progress Note ---
Medicine Progress Note Date & Time of Visit: Mar 30, 2017 at 16:36. Objective Last 8 Hrs Date Time Temp Pulse Resp B/P (MAP) Pulse Ox O2 Delivery O2 Flow Rate FiO2 03/30/17 12:00 Room Air 03/30/17 11:51 37.0 69 18 145/77 (99) 91 Room Air Physical Exam: General- oriented x 3, not in distress, speaks in sentences with no effort Head- atraumatic Eyes- EOMI, anicteric ENT- oropharynx clear Neck- supple, no JVD Lungs- clear breath sounds bilaterally, no rales/wheezes Heart- regular rhythm; no murmur, normal rate Abdomen- normal bowel sounds, soft, nontender Extremities- no pretibial edema, no calf tenderness; peripheral pulses intact Neuro- alert, oriented x 3; no gross deficits Skin- warm & dry Laboratory Results: Last 24 Hours Test 03/29/17 17:29 03/30/17 07:13 Activated Partial Thromboplast Time 58.7 SECONDS 101.9 SECONDS Partial Thromboplastin Ratio 2.3 3.9 White Blood Count 8.12 K/uL Red Blood Count 4.18 M/uL Hemoglobin 13.7 g/dL Hematocrit 41.1 % Mean Corpuscular Volume 98.3 fL Mean Corpuscular Hemoglobin 32.8 pg Mean Corpuscular Hemoglobin Concent 33.3 g/dl Platelet Count 164 K/uL Mean Platelet Volume 10.3 fL Neutrophils (%) (Auto) 58.3 % Lymphocytes (%) (Auto) 31.9 % Monocytes (%) (Auto) 7.0 % Eosinophils (%) (Auto) 2.2 % Basophils (%) (Auto) 0.4 % Neutrophils # (Auto) 4.73 K/uL Lymphocytes # (Auto) 2.59 K/uL Monocytes # (Auto) 0.57 K/uL Eosinophils # (Auto) 0.18 K/uL Basophils # (Auto) 0.03 K/uL RDW Standard Deviation 50.1 fL RDW Coefficient of Variation 14.0 % Immature Granulocyte % (Auto) 0.2 % Immature Granulocyte # (Auto) 0.02 K/uL Sodium Level 140 mmol/L Potassium Level 4.7 mmol/L Chloride Level 105 mmol/L Carbon Dioxide Level 30 mmol/L Anion Gap 5.0 mmol/L Blood Urea Nitrogen 18 mg/dl Creatinine 1.06 mg/dl Est Creatinine Clear Calc Drug Dose 53.0 ml/min Estimated GFR () 71.8 Estimated GFR (Non- 61.9 BUN/Creatinine Ratio 17.0 Random Glucose 100 mg/dl Calcium Level 9.0 mg/dl Magnesium Level 1.9 mg/dl Assessment & Plan Recurrent atrial fibrillation -- echo noted -- evaluated by Dr. Pearson -- Metoprolol increased Amlodipine held Amiodarone, Heparin started -- now in sinus rhythm -- awaiting further recommendations by Cardiology Syncope -- from A fib -- also has L carotid artery stenosis 75% updated Carotid US ordered -- Neurology consulted History of peripheral vascular disease past tobacco abuse skin cancer sp surgery. DVT proph Heparin drip Full Code Disposition anticipate d/c home when medically stable Current Inpatient Medications: Current Inpatient Medications Medications (Trade) Dose Ordered Sig/Lillie Route Start Time Stop Time Status Last Admin Dose Admin Ioversol (Optiray 320) 125 ml UD PRN IV 03/29/17 00:15 04/02/17 00:14 Acetaminophen (Tylenol Tab) 650 mg Q4H PRN PO 03/29/17 01:45 04/28/17 01:44 Nitroglycerin (Nitrostat Tab) 0.4 mg UD PRN SL 03/29/17 01:45 04/28/17 01:44 Aspirin (Ecotrin Tab) 81 mg DAILY PO 03/29/17 09:00 04/28/17 08:59 03/30/17 07:34 81 MG Metoprolol Succinate (Toprol Xl Tab) 25 mg DAILY PO 03/30/17 09:00 04/29/17 08:59 03/30/17 07:34 25 MG Prochlorperazine Edisylate 5 mg/ Syringe 5 ml @ 5 mls/min Q6H PRN IV 03/29/17 01:45 04/28/17 01:44 Tramadol HCl (Ultram Tab) 25 mg Q6H PRN PO 03/29/17 01:45 04/28/17 01:44 Miscellaneous (Iv Fluids Completed) 1 ea PRN PRN N/A 03/29/17 02:30 03/29/18 02:29 Amiodarone HCl (Cordarone Tab) 200 mg BID PO 03/30/17 21:00 12/20/17 20:59 Apixaban (Eliquis Tab) 5 mg BID PO 03/31/17 09:00 04/30/17 08:59
[2017-03-30] MEDS ORDERED: AMIODARONE 200 MG TAB PO SCH (21:00)
[2017-03-31] MEDS ORDERED: APIXABAN 2.5 MG TAB PO SCH (09:00)
--- NOTE | 2017-03-31 13:54 | Discharge Summary ---
Discharge Summary Date of Service Mar 31, 2017. Discharge Summary Admission Date: Mar 29, 2017 at 01:37 Discharge Date: Mar 30, 2017 Discharge Disposition: Home Principal Diagnosis: Recurrent Atrial Fibrillation Secondary Diagnoses/Problems: Please refer to hospital course below. Procedures: Echo: * The left ventricle is normal in size. * There is moderate concentric left ventricular hypertrophy. * Ejection Fraction = 50-55%. * The right ventricular systolic function is normal. * The left atrium is moderately dilated. * The right atrium is mildly dilated. * There is mild mitral regurgitation. * There is mild to moderate tricuspid regurgitation. ULTRASOUND OF THE CAROTID ARTERIES CLINICAL HISTORY: Carotid stenosis. COMPARISON STUDY: CT angiogram of the neck dated 03/12/2017. TECHNIQUE: Real-time, grayscale, and color Doppler sonography of the carotid arteries is performed. Images are reviewed in the transverse and longitudinal planes. FINDINGS: Blood pressures were not assessed. The carotid arteries are patent bilaterally and demonstrate antegrade flow. There is moderate to advanced atherosclerotic plaque seen bilaterally, left greater than right. Normal doppler arterial waveforms are seen throughout. Velocity measurements are listed below. Common carotid peak systolic velocity (cm/sec): RIGHT: 104 LEFT: 207 ICA proximal peak systolic velocity (cm/sec): RIGHT: 97 LEFT: 207 ICA mid peak systolic velocity (cm/sec): RIGHT: 70 LEFT: 68 ICA distal peak systolic velocity (cm/sec): RIGHT: 101 LEFT: 53 ICA/CC peak systolic ratio: RIGHT: 1.0 LEFT: 0.9 Antegrade flow was shown in the vertebral arteries. The external carotid arteries are patent. IMPRESSION: 1. Findings are consistent with at least 70% stenosis in the distal left common carotid/proximal left internal carotid artery by velocity criteria. This was better assessed on the recent CT angiogram of the neck. 2. There is no sonographic evidence of hemodynamically significant stenosis in the right carotid arterial system. 3. Antegrade flow is shown in the vertebral arteries. CT ANGIOGRAM OF THE CHEST CLINICAL HISTORY: Atypical chest pain and shortness of breath COMPARISON STUDY: Chest x-ray dated 03/28/2017 TECHNIQUE: Following the IV administration of 120 mL of Optiray-320, CT angiogram of the thorax was performed from the thoracic inlet to the lung bases utilizing the pulmonary embolus protocol. Images are reviewed in the axial, sagittal, and coronal planes. IV contrast was administered without complication. MIP imaging was performed. A dose lowering technique was utilized adhering to the principles of ALARA. CT DOSE: 1333.64 mGy.cm FINDINGS: No pathologically enlarged axillary mediastinal or hilar lymph nodes were visualized. The ascending thoracic aorta measures 39 mm. There were no pulmonary artery filling defects to indicate acute pulmonary embolism. No pleural effusions are visualized. There are mild dependent atelectatic changes. The heart is enlarged. There are coronary artery calcifications. There are moderate arthritic changes within the shoulders. IMPRESSION: 1. No evidence of acute pulmonary embolism 2. No evidence of focal pulmonary consolidation CT HEAD WITHOUT CONTRAST (CT) CLINICAL HISTORY: Left-sided headache COMPARISON STUDY: 03-27 TECHNIQUE: Axial CT of the brain is performed from the vertex to the skull base. IV contrast was not administered for this examination. A dose lowering technique was utilized adhering to the principles of ALARA. CT DOSE: FINDINGS: No intra or extra-axial mass lesions are visualized. There is no CT evidence of acute cortical infarction. There is no evidence of midline shift. There is no acute hemorrhage. No calvarial fractures are visualized. There are patchy white matter hypodensities likely on a small vessel basis. There is a cavum septa pellucida and cavum vergae. There is mild ventricular prominence, which is felt to be secondary to volume loss There is no evidence of acute sinusitis IMPRESSION: No acute intracranial findings Consultations: [employer] Specialist Dr. Polo/Dr. Rosenberg, Neurologist Dr. eWbster Pending Studies/Follow-Up: Referral to Vascular Surgeon for Left Carotid Stenosis 75%; Please refer to hospital course below for further details. Medication Reconciliation New Medications: Amiodarone HCl (Amiodarone HCl) 200 Mg Tab 200 MG PO BID for 90 Days, #180 TAB Apixaban (Eliquis) 2.5 Mg Tab 5 MG PO BID for 90 Days, #360 TAB 0 Refills Metoprolol Succinate (Metoprolol Succinate ER) 25 Mg Tabcr 25 MG PO DAILY for 90 Days, #90 TAB 0 Refills Continued Medications: Ascorbic Acid (Ascorbic Acid) 500 Mg Tab 500 MG PO DAILY, TAB Calcium Carbonate-Vitamin D (Calcium 600 + D) 1 Tab Tab 1 TAB PO DAILY Discontinued Medications: Amlodipine Besylate (Norvasc) 2.5 Mg Tab 2.5 MG PO DAILY Aspirin (Aspirin Ec) 81 Mg Tab 81 MG PO DAILY Metoprolol Succinate (Toprol Xl) 25 Mg Tabcr 12.5 MG PO DAILY Admission Information HPI (per Admitting provider): CHIEF COMPLAINT: Syncope. HISTORY OF PRESENT ILLNESS: History was obtained from patient and records. Medical history is significant for hypertension, paroxysmal A-Fib (related to a bout of pneumonia), BPH, arthritis, past tobacco abuse, skin cancer status post surgery and PVD as per records. Recent confinement was in July 2014 for gastroenteritis. [place] [facility] [place] last September 2016. Patient complaining of some slowing, change in exercise capacity tolerance. Atenolol was switched to Topral XL to reduce beta tessa effect as per note. Patient had a stress test in last November 2016 which showed no inducible ischemia. EF of 60-64%, LVH, mild aortic root enlargement. About 2 weeks ago, the patient noted dizziness, lightheadedness, being off balance and w some dyspnea on exertion. Patient was seen at the PCP's office and subsequently directed to the ER. CTA of the neck showed complex plaque, identified distal left common carotid artery greater than 75% stenosis seen just below the bifurcation. CT angio of the brain; senescent changes. Outpatient vascular surgery was contemplated. Patient was seen by [facility] [place] for followup a few days ago. Amlodipine was added to regimen for her labile blood pressure control. Outpatient carotid Dopplers ordered. In the last week, the patient had persistent exertional shortness of breath. Yesterday, the patient was at the ball game. At home last night, he had his usual 2 drinks of scotch. Subsequently sat down at the dinner table and subsequently passed out- unwitnessed. As per patient, he was found by his unresponsive in a chair. EMS was called. Patient woke up with EMS around him. Patient denies chest pain or unusual shortness of breath. He is complaining of left-sided headache, achy. No incontinence. No tongue biting. No previous syncopal events to patient's memory. At the Emergency Room the patient was noted to be in rapid A-Fib. He received IV Cardizem bolus/drip and normal saline at the ER. Patient converted to normal sinus rhythm. Patient is currently comfortable. Physical Exam (per Admitting): VITAL SIGNS: Blood pressure was noted to be 104/71, pulse rate 130 later 80, RR 20, temperature 36.7 and sats 95 on room air GENERAL: comfortable, in no respiratory distress. Looks younger for stated age. SKIN: Normal color. Warm. HEENT: [employer] palpebral conjuctivae. No ptosis. Dry buccal mucosa. NECK: No JVD. Supple. No tenderness. CHEST: Clear to auscultation. HEART: RRR. No murmur. CHEST: Clear to auscultation. No tenderness. ABDOMEN: Soft and nontender. EXTREMITIES: No edema. No tenderness. No gross deformities on exam. NEUROLOGIC: Coherent. No gross focality. Hospital Course RECURRENT ATRIAL FIBRILLATION -- in the setting of Syncope -- converted to sinus rhythm at the ER after IV fluids and Cardizem -- Echo: * The left ventricle is normal in size. * There is moderate concentric left ventricular hypertrophy. * Ejection Fraction = 50-55%. * The right ventricular systolic function is normal. * The left atrium is moderately dilated. * The right atrium is mildly dilated. * There is mild mitral regurgitation. * There is mild to moderate tricuspid regurgitation. -- CHADS score at least 3 -- evaluated by Dr. Pearson and Dr. Rosenberg -- Metoprolol increased from 12.5 to 25mg po daily Amlodipine discontinued Amiodarone 200mg po BID started Eliquis 5mg po BID started -- ff up with [employer] Specialist in 1-2 weeks SYNCOPE -- Neurologist Dr. Webster consulted -- last 03/14/17, found to have L ICA stenosis 75% by CT after patient to the ER for dizziness -- updated Carotid US ordered: 1. Findings are consistent with at least 70% stenosis in the distal left common carotid/proximal left internal carotid artery by velocity criteria. This was better assessed on the recent CT angiogram of the neck. 2. There is no sonographic evidence of hemodynamically significant stenosis in the right carotid arterial system. -- syncope felt to be cardiac in etiology as per Neuro -- needs referral to Vascular Surgeon -- started on Eliquis for Atrial Fibrillation HYPERTENSION - medication changes as noted above Disposition d/c home ff up with Dr. Hurtado on Thursday ff up with [employer]ist- Dr. Polo in 1-2 weeks refer to Vascular Surgeon Total time spent on discharge = This includes examination of the patient, discharge planning, medication reconciliation, and communication with other providers. Discharge Instructions Discharge Instructions Date of Service Mar 30, 2017. Admission Reason for Admission: Paroxysmal A Fib W/ Rvr Discharge Discharge Diagnosis / Problem: ATRIAL FIBRILLATION Discharge Goals Goal(s): Diagnostic testing, Therapeutic intervention Activity Recommendations Activity Limitations: as noted below (INCREASE ACTIVITY GRADUALLY TOLERATED) . Instructions / Follow-Up Instructions / Follow-Up PLEASE REVIEW YOUR NEW MEDICATION LIST AND FOLLOW INSTRUCTIONS CAREFULLY. IF YOU HAVE ANY HEAD TRAUMA, GO TO THE ER IMMEDIATELY FOR EVALUATION. CALL PRIMARY CARE PHYSICIAN OR RETURN TO ER IMMEDIATELY IF WITH DIZZINESS, PALPITATIONS, CHEST PAIN, SHORTNESS OF BREATH, BLEEDING. FOLLOW UP WITH PRIMARY CARE PHYSICIAN DR. HURTADO ON Thursday04/03/17 AT 11: 05AM. FOLLOW UP WITH ROVING TECHNICIAN DR. POLO IN 1-2 WEEKS. YOU WILL BE REFERRED TO A VASCULAR SURGEON ON YOUR FOLLOW UP VISIT. Current Hospital Diet Patient's current hospital diet: AHA Diet (Heart Healthy) Discharge Diet Recommended Diet: AHA Diet (Heart Healthy) Procedures Procedures Performed: CAROTID ULTRASOUND, ECHOCARDIOGRAM Pending Studies Studies pending at discharge: no Medical Emergencies . Who to Call and When: Medical Emergencies: If at any time you feel your situation is an emergency, please call 911 immediately. . Non-Emergent Contact Non-Emergency issues call your: Primary Care Provider, [employer] Specialist Call Non-Emergent contact if: you have any medication questions . . "Provider Documentation" section prepared by Sixto Avila. . VTE Core Measure Inpt VTE Proph given/why not?: Unfractionated heparin SQ
== END 2017-03-30 14:30 | disposition home or self-care (01) ==
LOC: EDBD 21:56 → C.EDA 21:59 → C.2T 03-29 01:37 → EDBEDREQ 03-29 01:52 → ENRESERV 03-29 02:06
PROVIDERS: ADMIT Internal Medicine; ATTEND Internal Medicine
DX: I48.0 Paroxysmal atrial fibrillation (principal); R55 Syncope and collapse; I65.23 Occlusion and stenosis of bilateral carotid arteries; I10 Essential (primary) hypertension; Z87.891 Personal history of nicotine dependence; R07.89 Other chest pain